=== PATIENT | male | born 1950 | race Caucasian/White ===

== ENCOUNTER 2020-05-31 14:16 | Emergency (ER) | payer SELFPAY ==
[~2020-05-31 14:16] MED LIST: CALCIUM CHLORIDE 1,000 MG/10 ML DISP.SYRIN ONE; EPINEPHrine SYRINGE 1 MG/10 ML SYRINGE ONE
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
== END 2020-05-31 16:38 ==
LOC: ER 14:16
DX: I46.9 Cardiac arrest, cause unspecified (principal)
CPT/HCPCS: 31500; 92950; 99291; J0171; J3490